=== PATIENT | male | born 1995 | race Caucasian/White ===

== ENCOUNTER 2023-08-23 21:11 | Emergency (ER) | payer SELFPAY ==
[~2023-08-23] VITALS: Ht 170.2 cm; Wt 69.9 kg
[2023-08-23 21:28] VITALS: TEMP 97.8
[2023-08-23] MEDS ORDERED: IBUPROFEN 400 MG TABLET ONE (21:52)
[2023-08-23] MEDS: IBUPROFEN 400 MG TABLET PO ONE (21:56)
[2023-08-24 00:29] VITALS: BP 135/72; O2SAT 99
== END 2023-08-24 00:29 | disposition home or self-care (01) ==
LOC: ER 21:24 → EDBD 21:24 → ER 08-24 00:29
DX: S09.8XXA Other specified injuries of head, initial encounter (principal); V89.2XXA Person injured in unspecified motor-vehicle accident, traffic, initial encounter; Y93.89 Activity, other specified; Y92.89 Other specified places as the place of occurrence of the external cause; Y99.8 Other external cause status
CPT/HCPCS: 70450-TC